=== PATIENT | female | born 1990 | race Caucasian/White ===

== ENCOUNTER 2020-11-12 06:41 | Inpatient (IN) | payer OTHER ==
[2020-11-12 07:46] LABS: HCT 34.7 % (37.0-47.0); HGB 11.4 g/dl (12.5-16.0); MCH 26.5 pg (25.0-31.0); MCHC 32.9 g/dL (32.0-36.0); MCV 80.7 fL (78.0-100.0); MPV 10.2 fL (6.0-9.5); RBC 4.3 M/uL (4.20-5.40); RDW 14.6 % (11.5-14.0)
[2020-11-12 08:32] LABS: BILIRUBIN NEGATIVE (NEGATIVE); BLOOD 3+ Ery/uL (NEGATIVE); CLARITY CLEAR (CLEAR); COLOR YELLOW (YELLOW); GLUCOSE (U) NORMAL (NORMAL); LEUKOCYTES NEGATIVE Leu/uL (NEGATIVE); NITRITE NEGATIVE (NEGATIVE); PROTEIN TRACE (LOW) mg/dL (NEGATIVE); UROBILINOGEN 0.2 mg/dL (0.2-1.0); pH 7.5 (5.0-9.0)
[2020-11-12 08:38] LABS: AMPHETAMINES NEGATIVE (NEGATIVE); BARBITURATES NEGATIVE (NEGATIVE); ECSTASY (MDMA) NEGATIVE (NEGATIVE); MARIJUANA (THC) POSITIVE (NEGATIVE); METHADONE NEGATIVE (NEGATIVE); OPIATES NEGATIVE (NEGATIVE); OXYCODONE NEGATIVE (NEGATIVE)
[2020-11-12 08:42] LABS: URINARY RBC 20-50
[2020-11-12 08:43] LABS: BACTERIA TRACE
[2020-11-12 09:41] LABS: ALBUMIN 2.3 g/dL (3.4-5.0); BILIRUBIN - TOTAL 0.3 mg/dL (0.2-1.0); BUN/CREAT RATIO (CALC) 12.5 RATIO; CREATININE 0.72 mg/dL (0.51-0.95); GLOBULIN (CALCULATION) 4.5 g/dL; POTASSIUM 4.3 mmol/L (3.5-5.1); TOTAL PROTEIN 6.8 g/dL (6.4-8.2)
[2020-11-12 11:00] LABS: URINE TOTAL PROTEIN-RANDOM 33.3 mg/dL (<11.9)
[2020-11-12 11:01] LABS: PROTEIN:CREATININE 0.66 RATIO; URINE CREATININE 50.04 mg/dL (29.00-226.00)
[2020-11-12 11:06] LABS: URIC ACID 4.7 mg/dL (2.6-6.2)
[2020-11-13 05:50] LABS: HCT 32.8 % (37.0-47.0); HGB 10.6 g/dl (12.5-16.0); MCH 26.4 pg (25.0-31.0); MCHC 32.3 g/dL (32.0-36.0); MCV 81.8 fL (78.0-100.0); MPV 10.3 fL (6.0-9.5); RBC 4.01 M/uL (4.20-5.40); RDW 14.9 % (11.5-14.0); WBC 9.5 K/uL (4.0-10.5)
== END 2020-11-14 14:45 | disposition home or self-care (01) | DRG 805 ==
LOC: FOD 06:41 → FOB 06:43 → FOD 10:20 → FOB 10:21
PROVIDERS: Obstetrics & Gynecology; ADMIT Obstetrics & Gynecology
PROC: 10E0XZZ Delivery of Products of Conception, External Approach (ICD-10-PCS; principal; 2020-11-12)
PROC: 0UQMXZZ Repair Vulva, External Approach (ICD-10-PCS; 2020-11-12)
DX: O99.02 Anemia complicating childbirth (principal); O41.1230 Chorioamnionitis, third trimester, not applicable or unspecified; Z37.0 Single live birth; D62 Acute posthemorrhagic anemia; O99.324 Drug use complicating childbirth; O24.429 Gestational diabetes mellitus in childbirth, unspecified control; O16.4 Unspecified maternal hypertension, complicating childbirth; F15.90 Other stimulant use, unspecified, uncomplicated; O71.82 Other specified trauma to perineum and vulva; Z20.822 Contact with and (suspected) exposure to COVID-19; Z3A.40 40 weeks gestation of pregnancy; F17.210 Nicotine dependence, cigarettes, uncomplicated; O99.334 Smoking (tobacco) complicating childbirth
CPT/HCPCS: 36415; 80053; 80305; 81001; 82570; 83615; 84112; 84156; 84550; 93005; J0360; J2540; J3475; J3490; J7120; U0002